=== PATIENT | male | born 1960 | race Caucasian/White ===

== ENCOUNTER 2017-05-07 16:43 | Emergency (ER) | payer OTHER ==
[2017-05-07 19:22] VITALS: BP 145/42
== END 2017-05-07 19:22 | disposition home or self-care (01) ==
LOC: ED 16:43
DX: M54.5 Low back pain (principal); M54.2 Cervicalgia; M51.27 Other intervertebral disc displacement, lumbosacral region; E11.9 Type 2 diabetes mellitus without complications; I10 Essential (primary) hypertension